=== PATIENT | female | born 1935 | race Caucasian/White ===

== ENCOUNTER 2019-01-05 16:54 | Emergency (ER) | payer MEDICARE ==
[~2019-01-05] VITALS: Ht 154.9 cm; Wt 35.5 kg
[2019-01-05 17:03] VITALS: TEMP 97.8
[2019-01-05] MEDS ORDERED: TYLENOL 500MG500 MG PO (17:39)
[2019-01-05] MEDS ORDERED: ASPIRIN 81M81 MG/TA2 PO (17:39)
[2019-01-05] MEDS ORDERED: LIPITOR 40MG TA40 MG PO (17:40)
[2019-01-05] MEDS ORDERED: SINEMET 25/101 UDTAB PO (17:40)
[2019-01-05] MEDS ORDERED: VITAMIN D31000 IU PO (17:41)
[2019-01-05] MEDS ORDERED: ARICEPT10 MG PO (17:42)
[2019-01-05] MEDS ORDERED: FLOVENT DI50 MCG/Act IH (17:43)
[2019-01-05] MEDS ORDERED: MAG OX 250 (17:43)
[2019-01-05] MEDS ORDERED: COZAAR 50MG50 MG/TAB PO (17:43)
[2019-01-05] MEDS ORDERED: KAPSPARGO SPRIN50 MG PO (17:44)
[2019-01-05] MEDS ORDERED: PRILOSEC 20MG20 MG PO (17:45)
[2019-01-05] MEDS ORDERED: ZOFRAN ODT4 MG PO (17:45)
[2019-01-05 17:47] LABS: BASO % 0.2 % (0.0-2.0); EOS % 0.1 % (0-4.0); GRAN # 11.6 (1.4-6.5); HEMATOCRIT 39.9 % (37.0-47.0); HEMOGLOBIN 12.9 g/dl (12.5-16.0); LYMPH # 0.6 (1.2-3.4); LYMPH % 4.4 % (20.0-51.0); MEAN CELL VOLUME 93 fl (80.0-100.0); MEAN CORPUSCULAR HEMOGLOBIN 30 pg (27.0-31.0); MEAN CORPUSCULAR HGB CONC 32 g/dl (33.0-37.0); MEAN PLATELET VOLUME 11.7 fl (7.4-10.4); MONO # 0.9 (0.1-0.6); MONO % 7.1 % (1.7-9.3); PLATELET COUNT 237 K/mm3 (130-400); RED BLOOD COUNT 4.28 M/mm3 (4.10-5.30); REDCELL DISTRIBUTION WIDTH-CV 14.6 % (11.5-14.5)
[2019-01-05] MEDS ORDERED: MIRALAX PA17 GM/Dose PO (17:47)
[2019-01-05] MEDS ORDERED: ZYRTEC 10MG10 MG PO (17:50)
[2019-01-05 17:53] LABS: ALBUMIN 3.7 gm/dL (3.5-5.0); BILIRUBIN,TOTAL 1.1 mg/dL (0.0-1.0); CALCIUM 9.5 mg/dL (8.4-10.2); CREATININE, serum 0.76 mg/dL (0.52-1.25); POTASSIUM 3.9 mmol/L (3.4-5.0); TOTAL PROTEIN 7.1 gm/dL (6.4-8.2)
[2019-01-05 18:52] LABS: COLLECTION METHOD CLEAN CATCH
[2019-01-05 19:01] LABS: MUCOUS Present /lpf; PH 5 (5-8); SQUAMOUS EPITHELIAL 0-2 /hpf; URINE APPEARANCE Hazy; URINE BACTERIA None Seen /hpf; URINE BILIRUBIN Negative (NEGATIVE); URINE BLOOD 1+ (NEGATIVE); URINE COLOR Yellow; URINE GLUCOSE Negative (NEGATIVE); URINE KETONE Trace (NEGATIVE); URINE LEUKOCYTE ESTERASE Trace (NEGATIVE); URINE NITRATE Negative (NEGATIVE); URINE PROTEIN(semi-quant) Negative (NEGATIVE)
[2019-01-05 21:58] VITALS: BP 146/82; PULSE 88
== END 2019-01-05 22:24 | disposition short-term general hospital (02) ==
LOC: COL.ER 16:54
PROVIDERS: Nurse Practitioner
DX: E11.9 Type 2 diabetes mellitus without complications (principal); I10 Essential (primary) hypertension; E78.5 Hyperlipidemia, unspecified; G20 Parkinson's disease; K66.8 Other specified disorders of peritoneum; K63.1 Perforation of intestine (nontraumatic); Z90.49 Acquired absence of other specified parts of digestive tract; Z90.89 Acquired absence of other organs; Z98.890 Other specified postprocedural states; Z79.82 Long term (current) use of aspirin; Z79.51 Long term (current) use of inhaled steroids
CPT/HCPCS: J2270; J2543; J7030; Q9967

== ENCOUNTER 2019-04-17 14:58 | Inpatient (IN) | payer MEDICARE ==
[~2019-04-17] VITALS: Ht 152.4 cm; Wt 53.0 kg
[~2019-04-17 14:58] MED LIST: ARICEPT10 MG PO; ASPIRIN 81M81 MG/TA2 PO; COZAAR 50MG50 MG/TAB PO; FLOVENT DI50 MCG/Act IH; KAPSPARGO SPRIN50 MG PO; LIPITOR 40MG TA40 MG PO; MAG OX 250; MIRALAX PA17 GM/Dose PO; PRILOSEC 20MG20 MG PO; SINEMET 25/101 UDTAB PO; TYLENOL 500MG500 MG PO; VITAMIN D31000 IU PO; ZOFRAN ODT4 MG PO; ZYRTEC 10MG10 MG PO
[2019-04-17 17:21] LABS: BILIRUBIN,TOTAL 0.5 mg/dL (0.0-1.0); CALCIUM 9.5 mg/dL (8.4-10.2); CREATININE, serum 1.25 (0.52-1.25); POTASSIUM 4.4 mmol/L (3.4-5.0); TOTAL PROTEIN 7.2 gm/dL (6.4-8.2)
[2019-04-17 17:39] LABS: BASO % 0.6 % (0.0-2.0); EOS # 0.3 (0.0-0.7); EOS % 3.6 % (0-4.0); GRAN # 5.3 (1.4-6.5); GRAN % 73.2 % (42.2-75.2); HEMOGLOBIN 11.1 g/dl (12.5-16.0); LYMPH % 14.4 % (20.0-51.0); MEAN CELL VOLUME 87 fl (80.0-100.0); MEAN CORPUSCULAR HEMOGLOBIN 27 pg (27.0-31.0); MEAN CORPUSCULAR HGB CONC 31 g/dl (33.0-37.0); MEAN PLATELET VOLUME 11.7 fl (7.4-10.4); MONO # 0.6 (0.1-0.6); MONO % 8.1 % (1.7-9.3); PLATELET COUNT 193 K/mm3 (130-400); RED BLOOD COUNT 4.17 M/mm3 (4.10-5.30); REDCELL DISTRIBUTION WIDTH-CV 16.6 % (11.5-14.5)
[2019-04-17 17:44] LABS: HEMATOCRIT 36.3 % (37.0-47.0)
[2019-04-17] MEDS ORDERED: AMOXICILLIN 8751 TAB PO (18:56)
[2019-04-17] MEDS ORDERED: ZOFRAN 4MG T4 MG/TAB PO (18:56)
[2019-04-17 20:56] LABS: COLLECTION METHOD CLEAN CATCH
[2019-04-17 21:08] LABS: MUCOUS Present /lpf; PH 5 (5-8); SQUAMOUS EPITHELIAL 0-2 /hpf; URINE APPEARANCE Clear; URINE BACTERIA Moderate /hpf; URINE BILIRUBIN Negative (NEGATIVE); URINE BLOOD Negative (NEGATIVE); URINE COLOR Yellow; URINE GLUCOSE Negative (NEGATIVE); URINE KETONE Trace (NEGATIVE); URINE LEUKOCYTE ESTERASE Trace (NEGATIVE); URINE NITRATE Positive (NEGATIVE); URINE PROTEIN(semi-quant) Negative (NEGATIVE); URINE RBC 0-2 /hpf; URINE UROBILINOGEN Negative (NEGATIVE)
[2019-04-17] MEDS ORDERED: BIOTENE ORALBAL42 GM MM (21:47)
[2019-04-17] MEDS ORDERED: LIQUIFILM TEARS15 ML OU ×2 (21:48)
[2019-04-17] MEDS ORDERED: ASPIRIN 81M81 MG/TA2 PO (21:48)
[2019-04-17] MEDS ORDERED: VITAMIN B12 781 TAB PO (21:51)
[2019-04-17] MEDS ORDERED: VOLTAREN GEL 1%1 TU TP (21:53)
[2019-04-17] MEDS ORDERED: BENADRYL25 M2 PO (21:54)
[2019-04-17] MEDS ORDERED: SENOKOT8.6 MG PO (21:55)
[2019-04-17] MEDS ORDERED: ENULOSE10 GM/151 PO (21:57)
[2019-04-17] MEDS ORDERED: TOPROL XL 25MG25 MG PO (22:00)
[2019-04-17] MEDS ORDERED: MEGACE ORAL40 MG/ML PO (22:00)
[2019-04-17] MEDS ORDERED: ULTRAM 50MG TAB50 MG PO (22:02)
[2019-04-18 00:19] VITALS: BP 126/69; PULSE 62; TEMP 97.7
[2019-04-18 04:21] VITALS: BP 112/54; PULSE 58; TEMP 97.8
[2019-04-18 07:24] VITALS: BP 137/95; PULSE 70; TEMP 98.5
[2019-04-18 08:00] LABS: BASO % 0.6 % (0.0-2.0); EOS # 0.3 (0.0-0.7); GRAN # 3.1 (1.4-6.5); GRAN % 57.9 % (42.2-75.2); HEMOGLOBIN 10.5 g/dl (12.5-16.0); LYMPH # 1.5 (1.2-3.4); LYMPH % 27.4 % (20.0-51.0); MEAN CELL VOLUME 86 fl (80.0-100.0); MEAN CORPUSCULAR HEMOGLOBIN 27 pg (27.0-31.0); MEAN CORPUSCULAR HGB CONC 31 g/dl (33.0-37.0); MEAN PLATELET VOLUME 10.9 fl (7.4-10.4); MONO # 0.4 (0.1-0.6); MONO % 7.7 % (1.7-9.3); PLATELET COUNT 173 K/mm3 (130-400); RED BLOOD COUNT 3.91 M/mm3 (4.10-5.30); REDCELL DISTRIBUTION WIDTH-CV 16.4 % (11.5-14.5)
[2019-04-18 08:01] LABS: HEMATOCRIT 33.6 % (37.0-47.0)
[2019-04-18 08:09] LABS: CALCIUM 8.5 mg/dL (8.4-10.2); CREATININE, serum 0.84 (0.52-1.25)
[2019-04-18 12:49] VITALS: BP 112/58; PULSE 62; TEMP 97.8
[2019-04-18 21:05] VITALS: BP 127/60; PULSE 58; TEMP 98.1
[2019-04-18 23:45] VITALS: BP 129/63; PULSE 54; TEMP 98
[2019-04-19 04:49] VITALS: BP 130/54; PULSE 60; TEMP 98.3
[2019-04-19 08:20] VITALS: BP 145/69; PULSE 65; TEMP 98.6
[2019-04-19 11:29] VITALS: BP 130/63; PULSE 70; TEMP 98
[2019-04-19 16:49] VITALS: BP 132/61; PULSE 61; TEMP 98.1
[2019-04-19 20:38] VITALS: BP 137/59; PULSE 59; TEMP 98.7
[2019-04-19 23:51] VITALS: BP 114/44; PULSE 61; TEMP 99.2
[2019-04-20] VITALS (11 sets, daily range): BP systolic 113–151; BP diastolic 54–79; PULSE 56–80; TEMP 97.8–98.9
[2019-04-21 03:11] VITALS: BP 140/61; PULSE 70; TEMP 98.3
[2019-04-21 08:56] VITALS: BP 135/72; PULSE 80; TEMP 98.5
[2019-04-21] MEDS ORDERED: ZOFRAN 4MG T4 MG/TAB PO (09:18)
[2019-04-21] MEDS ORDERED: CIPRO 500MG TA500 MG PO (09:25)
[2019-04-21 11:11] VITALS: BP 122/58; PULSE 86; TEMP 98.2
[2019-04-21 14:29] VITALS: BP 122/58; PULSE 86; TEMP 98.2
== END 2019-04-21 15:00 | DRG 391 ==
LOC: COL.ER 14:58 → SURG 20:20
PROVIDERS: Emergency Medicine; Internal Medicine Gastroenterology; Nurse Practitioner Family; ADMIT Internal Medicine
PROC: 0D738ZZ Dilation of Lower Esophagus, Via Natural or Artificial Opening Endoscopic (ICD-10-PCS; principal; 2019-04-20 15:45)
DX: K52.9 Noninfective gastroenteritis and colitis, unspecified (principal); E43 Unspecified severe protein-calorie malnutrition; N17.9 Acute kidney failure, unspecified; K57.92 Diverticulitis of intestine, part unspecified, without perforation or abscess without bleeding; N39.0 Urinary tract infection, site not specified; E87.2 Acidosis; Z68.1 Body mass index [BMI] 19.9 or less, adult; K22.2 Esophageal obstruction; I10 Essential (primary) hypertension; G20 Parkinson's disease; Z66 Do not resuscitate; I71.4 Abdominal aortic aneurysm, without rupture; I95.9 Hypotension, unspecified; K59.00 Constipation, unspecified; R53.81 Other malaise; K21.0 Gastro-esophageal reflux disease with esophagitis; E78.5 Hyperlipidemia, unspecified; R13.10 Dysphagia, unspecified; B96.1 Klebsiella pneumoniae [K. pneumoniae] as the cause of diseases classified elsewhere; D64.9 Anemia, unspecified; J30.2 Other seasonal allergic rhinitis; G47.00 Insomnia, unspecified; E86.0 Dehydration; Z93.3 Colostomy status; Z79.82 Long term (current) use of aspirin; Z79.891 Long term (current) use of opiate analgesic; Z87.891 Personal history of nicotine dependence; Z86.73 Personal history of transient ischemic attack (TIA), and cerebral infarction without residual deficits; Z87.440 Personal history of urinary (tract) infections; Z88.2 Allergy status to sulfonamides; Z88.9 Allergy status to unspecified drugs, medicaments and biological substances; Z88.8 Allergy status to other drugs, medicaments and biological substances
CPT/HCPCS: 99222-AI; 99232-AI; 99239; A4216; C1726; J0696; J1170; J1650; J2250; J2405; J3010; J7030; Q9967